=== PATIENT | male | born 1980 | race Caucasian/White ===

== ENCOUNTER 2020-06-01 14:15 | Emergency (ER) | payer BC ==
[~2020-06-01] VITALS: Ht 190.5 cm; Wt 136.4 kg
[2020-06-01 14:23] VITALS: BP 129/82; TEMP 98.4
[2020-06-01 16:16] VITALS: PULSE 74
== END 2020-06-01 16:16 | disposition home or self-care (01) ==
LOC: COL.ER 14:15
DX: Z20.3 Contact with and (suspected) exposure to rabies (principal); W11.XXXA Fall on and from ladder, initial encounter
CPT/HCPCS: 90375

== ENCOUNTER 2020-06-15 08:08 | Outpatient (RCR) | payer BC ==
[~2020-06-15] VITALS: Ht 190.5 cm; Wt 136.4 kg
[2020-06-15 08:17] VITALS: BP 138/89; PULSE 63; TEMP 97.7
== END 2020-09-02 | disposition home or self-care (01) ==
LOC: EUO
DX: Z23 Encounter for immunization (principal); Z20.3 Contact with and (suspected) exposure to rabies

== ENCOUNTER → 2021-11-26 | Outpatient (CLI) | payer BC | LOC: COL.RAD 11-24 10:30 | DX: N50.89 Other specified disorders of the male genital organs (principal) ==